=== PATIENT | female | born 1980 | race Two or more races ===

== ENCOUNTER 2020-03-10 05:47 | Day surgery (SDC) | payer BC ==
[~2020-03-10] VITALS: Ht 160 cm; Wt 86.2 kg
[2020-03-10] VITALS (12 sets, daily range): BP systolic 80–124; BP diastolic 36–89
[~2020-03-10 05:47] MED LIST: INDERAL LA80 MG ORAL; MELOXICAM7.5 MG PO; TRI-SPRINTEC1 EACH PO
[2020-03-10] MEDS ORDERED: NS Irrig 1000ml ONE (05:48)
[2020-03-10] MEDS ORDERED: LR 1000ml ONE (05:48)
[2020-03-10] MEDS ORDERED: Sterile Water Irrig 1000ml IRRIG ONE (05:48)
[2020-03-10] MEDS ORDERED: VITAMIN D PO (06:17)
--- NOTE | 2020-03-10 07:12 | Anethesia Preoperative Eval ---
Anesthesia Pre-op PMH/ROS General Date of Evaluation: Mar 10, 2020 Anesthesiologist: uJlio ASA Score: ASA 2 Mallampati Score Class I : Soft palate, uvula, fauces, pillars visible Class II: Soft palate, uvula, fauces visible Class III: Soft palate, base of uvula visible Class IV: Only hard plate visible Mallampati Classification: Class II Surgeon: Jose Diagnosis: Left ovarian cyst Surgical Procedure: Laparoscopic left ovarian cystectomy Anesthesia History: none Family History: no anesthesia problems Allergies: Coded Allergies: No Known Allergies (Unverified , 03/10/20) Medications: see eMAR Patient NPO?: Yes NPO Date: Mar 10, 2020 NPO Time: 00:00 Past Medical History Cardiovascular: Reports: HTN; Denies: CAD, HI, valve dz, arrhythmia, other Pulmonary: Denies: asthma, COPD, [place], other Gastrointestinal/Genitourinary: Reports: other - left ovarian cyst; Denies: GERD, CRI, ESRD Neurologic/Psychiatric: Reports: other - migaines; Denies: dementia, CVA, depression/anxiety, TIA Endocrine: Denies: DM, hypothyroidism, steroids, other HEENT: Denies: cataract (L), cataract (R), glaucoma, [place] (L), [place] (R), other Hematology/Immune: Denies: anemia, DVT, bleeding disorder, other Musculoskeletal/Integumentary: Denies: OA, RA, DJD, DDD, edema, other PSxH Narrative: Denies Anesthesia Pre-op Phys. Exam Physician Exam Last Vital Signs Date Time Temp Pulse Resp B/P (MAP) Pulse Ox O2 Delivery O2 Flow Rate FiO2 03/10/20 06:37 97.9 71 18 120/89 97 Room Air Constitutional: NAD Cardiovascular: RRR Respiratory: CTA Airway Exam Mallampati Score: Class II MO: full ROM: full Teeth: intact Anesthesia Pre-op A/P Labs see chart Urine Test Test 03/10/20 06:00 Urine HCG, Qualitative Negative (NEGATIVE) Risk Assessment & Plan Assessment: ASA II Plan: GA Status Change Before Surgery: No Pre-Antibiotics Drug: cefoxitin 2g Given Within 1 Hr of Incision: Yes Arlene Kim MD Mar 10, 2020 07:12
[2020-03-10] MEDS ORDERED: Ketorolac 30mg Inj IV PRN (07:15)
[2020-03-10] MEDS ORDERED: Metoclopramide 10mg/2ml Inj IVP PRN ×2 (07:15→07:45)
[2020-03-10] MEDS ORDERED: LORazepam Inj 2mg/ml 1ml IV PRN ×2 (07:15)
[2020-03-10] MEDS ORDERED: DiphenhydrAMINE 50mg/ml Inj IVP PRN ×2 (07:15→07:45)
[2020-03-10] MEDS ORDERED: Hydromorphone 0.5mg/0.5ml inj IVP PRN (07:15)
[2020-03-10] MEDS ORDERED: fentaNYL 100 mcg/2 mL IV PRN (07:15)
[2020-03-10] MEDS ORDERED: LR 1000ml 1,000 ML IVLG SCH (07:15)
[2020-03-10] MEDS ORDERED: Labetalol 5mg/ml 20ml vial IV PRN (07:15)
[2020-03-10] MEDS ORDERED: Ropivacaine 5mg/ml Vial 30ml INJ ONE (07:26)
[2020-03-10] MEDS ORDERED: cefOXitin 2gm Inj ONE (07:28)
[2020-03-10] MEDS ORDERED: Rocuronium Bromide 50mg/5ml Inj IV ONE (07:28)
[2020-03-10] MEDS ORDERED: fentaNYL 100 mcg/2 mL IV ONE (07:30)
[2020-03-10] MEDS ORDERED: Lidocaine 1% MPF 10mg/ml 5ml ONE (07:30)
[2020-03-10] MEDS ORDERED: ProvayBlue 5mg/ml 10ml amp INJ ONE (07:30)
[2020-03-10] MEDS ORDERED: Midazolam 2mg/2ml Inj ONE (07:30)
--- NOTE | 2020-03-10 07:34 | Pre-Procedure Note/Attestation ---
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 I attest that, if there was a reasonable possibility of needing a blood transfusion, the patient (or the patient's legal fuels sales representative) was given the [facility] standardized written summary, pursuant to the [place] Blood Safety Act ([place] Health and Safety Code # 1645, as amended). I attest that I re-evaluated the patient just prior to the surgery and that there has been no change in the patient's H&P, except as documented below: Brittny Garcia MD Mar 10, 2020 07:34
[2020-03-10] MEDS ORDERED: Ketorolac 30mg Inj ONE (07:43)
[2020-03-10] MEDS ORDERED: HYDROmorphone 1mg/ml Carpuject SUBQ PRN (07:45)
[2020-03-10] MEDS ORDERED: HYDROcodone/Acetamin 5/325 tab ORAL PRN (07:45)
[2020-03-10] MEDS ORDERED: Tylenol #3 tab (300mg/30mg) ORAL PRN (07:45)
--- NOTE | 2020-03-10 09:27 | Brief Operative Note ---
Immediate Post Operative Note Operative Note Pre-op Diagnosis: left ovarian neoplasm of unknown potential Procedure: laparoscopic left ovarian cystectomy Post-op Diagnosis: same Surgeon: tobin trejo [employer] Pulverizer Operator: lane reyez Anesthesiologist: pasha Anesthesia: general Specimen: yes Complications: none Condition: stable Fluids: crystsalloid Estimated Blood Loss: minimal Drains: none Implant(s) used?: No Tobin Trejo MD Mar 10, 2020 09:27
--- NOTE | 2020-03-10 09:39 | Immediate Post-Op Evaluation ---
Immediate Post-Op Evalulation Immediate Post-Op Evalulation Procedure: Laparoscopic left ovarian cystectomy Date of Evaluation: Mar 10, 2020 Time of Evaluation: 09:39 IV Fluids: 1.2L Blood Products: 0 Estimated Blood Loss: min Urinary Output: 200 Blood Pressure Systolic: 97 Blood Pressure Diastolic: 36 Pulse Rate: 79 Respiratory Rate: 16 O2 Sat by Pulse Oximetry: 97 Temperature (Fahrenheit): 97.0 Pain Score (1-10): 0 Nausea: No Vomiting: No Complications 0 Patient Status: awake, reacts, patent, none Hydration Status: adequate Drug: cefoxitin 2g Given Within 1 Hr of Incision: Yes Arlene Kim MD Mar 10, 2020 09:39
--- NOTE | 2020-03-10 09:40 | 48 Hour Post Anesthesia Eval ---
Post Anesthesia Evaluation Procedure: Laparoscopic left ovarian cystectomy Date of Evaluation: Mar 10, 2020 Airway: patent Nausea: No Vomiting: No Pain Intensity: 0 Hydration Status: adequate Cardiopulmonary Status: at baseline Mental Status/LOC: patient returned to baseline Post-Anesthesia Complications: 0 Follow-up care needed: ready to discharge Arlene Kim MD Mar 10, 2020 09:40
--- NOTE | 2020-03-10 16:15 | Operative Note - Dictated ---
DATE OF OPERATION: 03/10/2020 PREOPERATIVE DIAGNOSIS: Left ovarian neoplasm of unknown potential. POSTOPERATIVE DIAGNOSIS: Left ovarian neoplasm of unknown potential. PROCEDURE: Diagnostic laparoscopy, laparoscopic left ovarian cystectomy. SURGEON: Brittny Garcia M.D. SAND MOLDER: Courtney Mckinley M.D. ANESTHESIOLOGIST: Arlene Kim M.D. FINDINGS: An 8 cm left ovarian cyst, smooth contoured. No adhesions. Normal tubes and right ovary. Normal uterus with a small, less than 1 cm fibroid. PROCEDURE IN DETAIL: After ensuring informed consent, the patient was taken to the operating room, where general anesthesia was induced. The patient was sterilely prepped and draped. Weighted speculum was placed in the vagina. Cervix was dilated to 8 Hegar dilator. HUMI-type manipulator was placed inside the uterus. Next, attention was turned to the abdomen, where a small incision was made in the umbilicus. Veress needle was placed inside the peritoneal cavity. Peritoneal cavity was insufflated with CO2 gas. Next, a 5 mm trocar was placed inside the umbilicus and intraperitoneal placement was confirmed with the camera. Next, a left lateral 5 mm trocar was placed under direct visualization and a 10 mm suprapubic trocar was placed under direct visualization. Pelvis was irrigated and washings were sent. Ovary was incised, opened, and the cyst was grasped with graspers, deflated, and both bluntly and sharply dissected from the underlying ovarian stroma until the whole cyst was removed. Some of the thin ovarian stroma overlying the capsule was trimmed. Excellent hemostasis was assured with the bipolar. Upper abdomen was explored and was within normal limits. Liver was visualized. Then, pelvis was copiously irrigated with approximately 2 liters of normal saline. The irrigant was suctioned off. Trocars were removed under direct visualization and the suprapubic 1 cm trocar site was closed with 0 Vicryl and all trocar sites were closed with 4-0 Monocryl and Steri-Strips. At the end of the procedure, all instrument and lap counts were correct x2. The patient was taken to the recovery area extubated in a stable condition. Brittny Garcia M.D. DR: WING JOB#: [id number] CC:
[2020-03-10] MEDS ORDERED: D5 1/2NS 1,000 ML IV SCH (17:00)
== END 2020-03-10 12:45 | disposition home or self-care (01) ==
LOC: SUR 05:47
DX: D27.1 Benign neoplasm of left ovary (principal); I10 Essential (primary) hypertension
CPT/HCPCS: 58662; 81025; 94003; J0694; J1100; J1170; J1885; J2250; J2405; J2704; J2765; J2795; J3010; J7120; U0002; 94150